=== PATIENT | male | born 1975 | race Caucasian/White ===

== ENCOUNTER 2024-07-22 08:54 | Inpatient (IN) | payer MEDICARE, OTHER, SELFPAY ==
[2024-07-22] VITALS (10 sets, daily range): BP systolic 129–158; BP diastolic 88–100; BMI 33.1; BMI 33.2
[2024-07-22] MEDS: ZOFRAN 4 MG IV ×3 (04:31→23:30)
[2024-07-22 04:56] LABS: % Basophils 0.3 % (0-2); % Eosinophils 0.9 % (0-6); % Immature Granulocytes 1.1 % (0-0.5); % Lymphocytes 1.2 % (20.5-51.1); % Monocytes 7.5 % (1.7-9.3); Absolute Basophils 0.1 10^3/uL (0-0.2); Absolute Eosinophils 0.2 10^3/uL (0-0.7); Absolute Immature Granulocytes 0.2 10^3/uL (0-0.05); Absolute Lymphocytes 0.2 10^3/uL (1.2-3.4); Absolute Monocytes 1.3 10^3/uL (0.1-0.6); Absolute Neutrophils 15.4 10^3/uL (1.4-6.5); Hemoglobin 14.6 g/dL (13.0-18.0); Mean Corp Hgb Conc. 33.2 g/dL (33.0-37.0); Mean Corpuscular Hgb 29.2 pg (27.0-31.0); Mean Platelet Volume 9.2 fL (7.4-10.4); Nucleated Red Blood Cells % 0.1 % (-); Platelet Count 470 10^3/uL (130-400); Red Cell Dist. Width 16.3 % (11.5-14.5); White Blood Cell Count 17.3 10^3/uL (4.8-10.8)
[2024-07-22 05:22] LABS: ALT (SGPT) 49 U/L (0-50); AST (SGOT) 30 U/L (17-59); Albumin 4.7 g/dl (3.5-5.0); Alkaline Phosphatase 90 U/L (38-126); Blood Urea Nitrogen 19 mg/dl (9-20); Calcium 10.9 mg/dl (8.4-10.2); Carbon Dioxide 17 mmol/L (22-30); Chloride 104 mmol/L (98-107); Estimated Creatinine Clearance > 125 ml/min; Glucose 162 mg/dl (70-99); Lipase 101 U/L (23-300); Potassium 4.6 mmol/L (3.5-5.1); Sodium 141 mmol/L (135-145); Total Bilirubin 0.8 mg/dl (0.2-1.3); Total Protein 7.8 g/dl (6.3-8.2); eGFR > 60.00
--- NOTE | 2024-07-22 05:35 | ED.GENMED ---
History of Present Illness
General
Chief Complaint: Abdominal Symptoms
Source: patient and correction
Exam Limitations: none
Time Seen by Provider: 07/22/24 05:25
Nursing documentation reviewed up to this point in time: agreed with
History of Present Illness
History of Present Illness:
This is a 57-year-old obese gentleman who is currently a resident of [facility] for the past week, admitted for rehabilitation purposes after suffering a left knee tibial plateau fracture while hospitalized at a psychiatric care unit in
[facility] for treatment of depression/anxiety symptoms. He states approximately 1 month ago he twisted his left knee and suffered a tibial plateau fracture that has not required surgical repair. He is currently nonweightbearing for
approximately 6 to 8 weeks and was transferred from [facility] on July 11 to [facility] for physical therapy.
He complains of acute onset of nausea, vomiting, diarrhea that began around midnight tonight, persistent passing multiple episodes of watery nonbloody stool as well as multiple episodes of nonbloody vomitus. He admits to crampy abdominal pain but
does not believe he has been running a fever.
No known close contacts with similar symptoms.
He states approximately 1 month ago he suffered C. difficile. He is unsure how he contracted C. difficile, no reported antibiotics. Current diarrhea seems similar to C. difficile infection from a month ago but that was not associated with nausea
and vomiting.
He has history of chronic pain syndrome, chronically maintained on MS IR.
Upon review of PDMP, patient had been maintained on MS Contin as well as MS IR but currently prescribed MS IR 15 mg every 6 hours as needed.
He is also chronically maintained on low-dose prednisone 5 mg, apparently for prior history of vasculitis.
History of DVT, maintained on Eliquis.
Past History
Past History
ED Past Medical History: CAD, CHF, CVA (TIA), GERD, HTN, NIDDM (Prediabetes), Psychiatric (Major depressive disorder, suicidal attempt), Other (Chronic pain syndrome/narcotic dependent; DVT-maintained on Eliquis) and Other (B12 deficiency, UTI)
Social History
Tobacco: Non-smoker
Alcohol: None
Drug: None
Personal:
Living: correction (Currently residing at [facility] for rehabilitation)
Employment: Disabled
Family History
Family History: Other (Noncontributory)
Phy Exam
Physical Exam
Physical Exam:
GENERAL: 49-year-old obese gentleman appears somewhat older than stated age, awake and alert, mildly anxious but easily communicative. Appears mildly chronically ill.
EYE: pupils equal and reactive. anicteric
NECK: Supple, nontender, no meningismus, no significant adenopathy.
ENT: posterior pharynx is clear, oral mucosa is mildly dry. No rhinorrhea.
CARDIAC: Regular rhythm, tachycardic at 115. no murmur.
LUNGS: Clear breath sounds bilaterally, no acute respiratory distress, no wheezes/rales/rhonchi
ABDOMEN: Rotund, soft, nondistended, minimal generalized lower abdominal tenderness with deep palpation only, no r/g, no cvat. Mildly hyperactive bowel sounds.
NEUROLOGICAL: Alert and oriented x3, no focal neuro deficits.
SKIN: Warm and dry, minimally pale in color color, skin intact. No rash.
MUSCULOSKELETAL: No C/C/E. peripheral pulses are full and equal b/l. Mild tenderness about the left knee with very minimal effusion of the left knee.
PSYCH: Moderately blunted affect. Easily communicative.
Course
Orders/Labs/Results
Orders:
Orders
07/22/24 04:21
Ondansetron Injectable [Zofran] 4 mg .ROUTE .STK-MED ONE
07/22/24 04:30
Ondansetron Injectable [Zofran] 4 mg IV NOW STA
07/22/24 04:35
Complete Blood Count/With Diff Urgent
Comprehensive Metabolic Panel Urgent
Lipase Urgent
Influenza A+B Rapid Molecular Urgent
HEAVENLY Source: Nasal Swab
Specimen Description:
STOOL [C difficile Antigen & Toxins] Urgent
HEAVENLY Source: Feces/Stool
Specimen Description:
Date Specimen was Collected: 07/22/24
Time Specimen was Collected: 04:34
Stool Culture Urgent
HEAVENLY Source: Feces/Stool
Specimen Description:
Date Specimen was Collected: 07/22/24
Time Specimen was Collected: 04:34
07/22/24 04:41
EKG [Electrocardiogram (*1)] Urgent
Reason for Study: Tachycardia
EKG- Treatment ONCE
07/22/24 04:51
Add On - Microbiology Urgent
Comments:: stool
Tests Added?: Norovirus
07/22/24 05:53
CT Abd/pelvis W Iv Cont Urgent
Comment:
Reason For Exam: N/V/D, abd pain
Hydrocortisone Sod Succinate [Solu-Cortef] 100 mg IV NOW STA
Morphine Sulfate 4 mg IV NOW STA
07/22/24 06:40
Lactic Acid Urgent
07/22/24 06:41
NSS 1000mL Bolus over 1 hr 0.9% Sodium Chloride 1000 ml [Nss] 1,000 ml IV BOLUS
Abnormal Lab Results
07/22/24
04:35
WBC 17.3 H 10^3/uL
(4.8-10.8)
RDW 16.3 H %
(11.5-14.5)
Plt Count 470 H 10^3/uL
(130-400)
Abs Immat Gran (auto) 0.2 H 10^3/uL
(0-0.05)
Absolute Neuts (auto) 15.4 H 10^3/uL
(1.4-6.5)
Absolute Lymphs (auto) 0.2 L 10^3/uL
(1.2-3.4)
Absolute Monos (auto) 1.3 H 10^3/uL
(0.1-0.6)
Immature Gran % 1.1 H %
(0-0.5)
Neutrophils % 89.0 H %
(42.2-75.2)
Lymphocytes % 1.2 L %
(20.5-51.1)
Carbon Dioxide 17 L mmol/L
(22-30)
Glucose 162 H mg/dl
(70-99)
Calcium 10.9 H mg/dl
(8.4-10.2)
07/22/24 04:35
07/22/24 04:35
Vital Signs
Initial and Last Documented VS:
Initial Vital Signs
Temp Pulse Resp BP Pulse Ox
98.4 F 119 16 152/100 93
07/22/24 04:17 07/22/24 04:17 07/22/24 04:17 07/22/24 04:17 07/22/24 04:17
Last Documented Vital Signs
Temp Pulse Resp BP Pulse Ox
98.4 F 115 15 137/97 95
07/22/24 04:17 07/22/24 05:00 07/22/24 05:00 07/22/24 05:00 07/22/24 05:00
MDM/Problems Addressed
Differential Diagnosis Includes:
Concern for acute gastroenteritis either viral versus foodborne, other consideration is norovirus, concern for recurrent C. difficile colitis.
Concern for electrolyte abnormality, acute dehydration.
Patient chronically maintained on low-dose prednisone, at risk for adrenal insufficiency, at risk for sepsis.
IV fluids infusing, nausea has resolved after an IV dose of Zofran.
Stool cultures obtained and results are pending.
Labs are remarkable for moderately elevated white blood cell count of 17.3, mild acidosis without anion gap.
Patient noted to have mild sinus tachycardia but otherwise normal blood pressure.
Will check CT abdomen pelvis, continue IV fluids. Will trial ice chips.
Will give an IV dose of morphine for pain, and IV dose of Solu-Cortef for potential adrenal insufficiency.
Chronic conditions affecting care: DM, HTN, Cardiomyopathy, Immunosuppressed and Psychiatric illness
*Radiology
Radiology exam reviewed: radiology read reviewed (CAT scan shows acute colitis and proctitis with diarrhea. Acute gastroenteritis without obstruction or perforation. Appendix is normal. Cholelithiasis without cholecystitis. Hepatic steatosis.)
*Pulse Oximetry
Patient hypoxic: no
*EKG
Interpreted by ED Provider?: Yes
Interpretation: abnormal
Comparison EKG: no comparison EKG present
Rate: tachycardiac
Rhythm: sinus
Unity: normal axis
Interval: normal interval
QRS Pattern: poor R-wave progression
Ischemia: non-specific ST changes (Inferior Q waves noted, poor R wave anteriorly. No old EKGs to compare.)
*Critical Care Note
Total Time (30-74mins, 75-104mins- exclusive of procedures): Not Applicable
Update Note
Update Note:
06:50
Patient continues with sinus tachycardia, otherwise remains hemodynamically stable.
CAT scan shows acute gastroenteritis, colitis. No obstruction.
Stool studies pending.
Will check lactic acid.
Will continue IV fluids and will admit to hospitalist service
ED Attending Note
-
Portions of this chart may have been created with voice recognition software.� Occasional wrong word or��sound alike� substitutions may have occurred due to the inherent limitations of voice recognition software.
Discharge Plan
Departure
Patient Disposition: Admit
Date of Disposition: 07/22/24
Time of Disposition: 06:59
Admit to: Telemetry
Presentation/result/management discussed w/ accepting MD/DO: Hospitalist
Condition: Fair
Discharge Problem:
Acute gastroenteritis, History of Clostridium difficile infection, Sinus tachycardia, Acute colitis
Prescriptions:
No Action
carvedilol 25 mg Tablet
25 mg PO BID
acetaminophen 325 mg Tablet
650 mg PO Q6H PRN (Reason: Fever/mild pain )
carvedilol 12.5 mg Tablet
18.75 mg PO BID
Rx Instructions:
Give 1 and 1/2 tablets with 25mg to total 43.75mg BID
cyanocobalamin (vitamin B-12) 100 mcg Tablet
100 mcg PO DAILY
cetirizine 10 mg Tablet
10 mg PO DAILY
clonazepam 0.5 mg Tablet
0.5 mg PO DAILY
amlodipine 5 mg Tablet
5 mg PO DAILY
famotidine 20 mg Tablet
20 mg PO BID
bisacodyl 10 mg Suppository
10 mg SC DAILY PRN (Reason: If MOM is ineffective )
Fleet Enema 19-7 gram/118 mL Enema
118 ml SC ONCE PRN (Reason: constipation)
Rx Instructions:
If suppository ineffective
folic acid 1 mg Tablet
1 mg PO DAILY
furosemide 20 mg Tablet
20 mg PO Q OTHER DAY
azathioprine 100 mg Tablet
200 mg PO DAILY
apixaban 5 mg Tablet
5 mg PO BID
cholecalciferol (vitamin D3)
2,000 units PO DAILY
docusate sodium
PO TID
lidocaine 4 % Adhesive Patch,Medicated
1 patch TOPICAL DAILY
Rx Instructions:
Apply to knees in the morning and off at night
sertraline 100 mg Tablet
200 mg PO DAILY
magnesium hydroxide [Milk of Magnesia] 400 mg/5 mL Suspension
30 ml PO DAILY PRN (Reason: constipation )
Rx Instructions:
If no BM in 3 days
trazodone 100 mg Tablet
100 mg PO HS
prednisone 1 mg Tablet
1 mg PO DAILY
morphine 15 mg Tablet
15 mg PO Q6H PRN (Reason: chronic pain syndrome)
Oyster Calcium Tablet
2 tab PO BID
pregabalin 25 mg Capsule
25 mg PO TID
Referrals:
Keith Burnett DO [Family Provider] -
Interventions
Interventions:
*Risk Screen - Suicide Last Done: 07/22/24 04:17
*General Assessment Last Done: 07/22/24 04:17
*Neglect/Abuse Screening Last Done: 07/22/24 04:17
*ED- Fall Risk Assessment Last Done: 07/22/24 05:02
XK-Zookig-Shzndflfla Assessment Last Done: 07/22/24 05:02
Discharge Date and Time
Print Language: ARABIC
[2024-07-22] MEDS: MORPHINE SULFATE 4 MG IV (06:02)
[2024-07-22] MEDS: SOLU-CORTEF 100 MG IV (06:03)
[2024-07-22] MEDS: NSS 1000 IV ×3 (07:02→21:05)
[2024-07-22] MEDS: ATIVAN 0.5 MG IV (07:15)
[2024-07-22 07:29] LABS: Lactic Acid 1.3 mmol/L (0.7-2.0)
--- NOTE | 2024-07-22 07:58 | HPS.HSE ---
Family Physician
-
Family Physician: Keith Burnett, DO
Chief Complaint
-
Vomiting and diarrhea
History of Present Illness
57-year-old man with a history of:
currently a resident of [facility] for the past week,
hospitalized at a psychiatric care unit in [facility] for treatment of depression/anxiety symptoms.
1 month ago he twisted his left knee and suffered a tibial plateau fracture that has not required surgical repair.
currently nonweightbearing for approximately 6 to 8 weeks and was transferred from [facility] on July 11 to [facility] for physical therapy.
CAD, CVA, CHF
Comes in with acute onset of nausea, vomiting, diarrhea that began around midnight tonight. The episodes are persistent, passing multiple episodes of watery nonbloody stool as well as multiple episodes of nonbloody vomitus. He admits to crampy
abdominal pain but does not believe he has been running a fever. 1 month ago he suffered C. difficile. He is unsure how he contracted C. difficile, no reported antibiotics. Current diarrhea seems similar to C. difficile infection from a month ago
but that episode was not associated with nausea and vomiting. He has history of chronic pain syndrome, chronically maintained on MS IR. He is also chronically maintained on low-dose prednisone 5 mg, for prior history of vasculitis. History of
DVT, maintained on Eliquis.
Medical History
Past Medical History
Past Medical History: Reports Other
Additional Past Medical History:
CAD,
CHF, type not known
CVA (TIA),
GERD,
essential HTN,
NIDDM
Major depressive disorder,
suicidal attempt
Chronic pain syndrome/narcotic dependent;
DVT-maintained on Eliquis
B12 deficiency, UTI
Obesity (BMI of 33.1)
Past Surgical History: Reports None
Social History
Tobacco: Non-smoker
Alcohol: None
Personal:
Living: With Family
Employment: Disabled
Family History
Family History: Not pertinent
Allergies / Home Medications
Allergies reflects when Allergies were last updated in [employer].
Home Medications with original date entered in [employer]
Allergy/Medication List:
Allergies
Allergy/AdvReac Type Severity Reaction Status Date / Time
No Known Allergies Allergy Verified 07/22/24 04:30
Home Medications
acetaminophen 325 mg tablet 650 mg PO Q6H PRN Fever/mild pain 07/22/24
amlodipine 5 mg tablet 5 mg PO DAILY 07/22/24
apixaban 5 mg tablet 5 mg PO BID 07/22/24
azathioprine 100 mg tablet 200 mg PO DAILY 07/22/24
bisacodyl 10 mg rectal suppository 10 mg SD DAILY PRN If MOM is ineffective 07/22/24
calcium carbonate-vit A and D tablet 2 tab PO BID 07/22/24
carvedilol 12.5 mg tablet 18.75 mg PO BID 07/22/24
carvedilol 25 mg tablet 25 mg PO BID 07/22/24
cetirizine 10 mg tablet 10 mg PO DAILY 07/22/24
cholecalciferol (vitamin D3) 2,000 units PO DAILY 07/22/24
clonazepam 0.5 mg tablet 0.5 mg PO DAILY 07/22/24
cyanocobalamin (vitamin B-12) 100 mcg tablet 100 mcg PO DAILY 07/22/24
docusate sodium PO TID 07/22/24
famotidine 20 mg tablet 20 mg PO BID 07/22/24
folic acid 1 mg tablet 1 mg PO DAILY 07/22/24
furosemide 20 mg tablet 20 mg PO Q OTHER DAY 07/22/24
lidocaine 4 % topical patch 1 patch topical DAILY 07/22/24
magnesium hydroxide 400 mg/5 mL oral suspension (Milk of Magnesia) 30 ml PO DAILY PRN constipation 07/22/24
morphine 15 mg immediate release tablet 15 mg PO Q6H PRN chronic pain syndrome 07/22/24
prednisone 1 mg tablet 1 mg PO DAILY 07/22/24
pregabalin 25 mg capsule 25 mg PO TID 07/22/24
sertraline 100 mg tablet 200 mg PO DAILY 07/22/24
sodium phosphates 19 gram-7 gram/118 mL enema (Fleet Enema) 118 ml SD ONCE PRN constipation 07/22/24
trazodone 100 mg tablet 100 mg PO HS 07/22/24
Review of Systems
-
History Source: Patient
A 12 point ROS was completed and negative except as noted: Yes
Abdomen/GI: Reports Abdominal Pain, Nausea, Vomiting and Diarrhea
Physical Exam
Vital Signs
Vital Signs
Temp Pulse Resp BP Pulse Ox
98.4 F 110 20 142/97 92
07/22/24 04:17 07/22/24 07:45 07/22/24 07:45 07/22/24 07:00 07/22/24 07:45
Physical Exam
General: Well Developed, Well Nourished, No Apparent Distress, Comfortable, Conversant and Obese
HEENT: NormoCephalic, Moist mucous membranes, Nose Appears Normal and Ears Appear Normal
Respiratory: Clear
Cardiac: S1/S2, Regular Rhythm and Tachycardia
GI: Soft, Non Distended and Tender (RLQ, no rebound.)
Musculoskeletal: No Clubbing, No Cyanosis and No Edema
Skin: Warm and Dry
Neuro: Awake, Alert, Oriented and AO x 3
Psych: Calm
Laboratory Results
-
07/22/24 04:35
07/22/24 04:35
Laboratory Results
Lactic Acid 1.3 mmol/L (0.7-2.0) 07/22/24 07:01
Total Bilirubin 0.8 mg/dl (0.2-1.3) 07/22/24 04:35
AST 30 U/L (17-59) 07/22/24 04:35
ALT 49 U/L (0-50) 03/09/25 04:35
Alkaline Phosphatase 90 U/L (38-126) 07/22/24 04:35
Lipase 101 U/L (23-300) 07/22/24 04:35
Data Reviewed
-
Lab Data: Labs Reviewed by me
Impression/Plan
-
IMPRESSION:
49 man with nausea/vomiting, living in a jail, h/o recent c-diff.
WBC 17.3
HR 114
[address] preliminary report - colitis
PLAN:
1. Probable gastroenteritis - norovirus and c-diff and other stool studies pending, WBC 17.3
Await results
Supportive care as needed - imodium and zofran
2. Abnormal ECG, with evidence of infarction, age not known, h/o CAD.
Telemetry
Troponins x3
3. H/O DVT on eliquis - continue eliquis
4. H/O chronic steroids - BP not low.
Give regular dose
If vitals do not improve with fluids, give stress dose of steroids
5. NIDDM - Insulin sliding scale
6. Depression - continue current SSRIs
7. Chronic pain - continue usual pain meds
8. Essential HTN - BP not low - continue BP meds
Full code
Eliquis for DVTp
--- NOTE | 2024-07-22 11:00 | PTCARENOTE ---
Patient received from ED; AAOx3; flat; H/o recent suicide attempt (06/20/2024); patient reports feeling depressed; denies any suicidal thoughts or plan; Dr. Duncan notified per protocol; no new orders at this time.
[2024-07-22] MEDS: IMODIUM 2 MG PO ×3 (11:06→23:30)
[2024-07-22] MEDS: PEPCID 20 MG PO ×2 (11:06→21:02)
[2024-07-22] MEDS: LASIX 20 MG PO (11:15)
[2024-07-22 11:31] LABS: Troponin I < 0.012 ng/ml
[2024-07-22] MEDS: TYLENOL 650 MG PO (11:52)
[2024-07-22 13:05] LABS: Glycohemoglobin (HgbA1c) 5.3 % (4.0-5.6)
[2024-07-22 13:08] LABS: Troponin I < 0.012 ng/ml
[2024-07-22] MEDS: LYRICA 25 MG PO ×2 (15:49→21:02)
[2024-07-22 16:51] LABS: Troponin I < 0.012 ng/ml
--- NOTE | 2024-07-22 18:00 | PTCARENOTE ---
Abnormal EKG; Dr. Duncan notified; patient denies SOB and chest pain; VSS; Trop 0.012.
[2024-07-22] MEDS: OSCAL 500 + D 1000 MG PO (21:01)
[2024-07-22] MEDS: COREG 18.75 MG PO (21:01)
[2024-07-22] MEDS: COREG 25 MG PO (21:01)
[2024-07-22] MEDS: ELIQUIS 5 MG PO (21:02)
[2024-07-22] MEDS: DESYREL 100 MG PO (21:03)
[2024-07-22] MEDS: MORPHINE SULFATE 15 MG PO (21:05)
[2024-07-23] VITALS (9 sets, daily range): BP systolic 116–143; BP diastolic 65–89; PULSE 79; O2SAT 96; BMI 33.2
[2024-07-23] MEDS: NSS 1000 IV ×2 (08:26→16:37)
[2024-07-23] MEDS: ELIQUIS 5 MG PO ×2 (08:27→20:09)
[2024-07-23] MEDS: ZOLOFT 200 MG PO (08:27)
[2024-07-23] MEDS: VITAMIN B-12 100 MCG PO (08:27)
[2024-07-23] MEDS: VITAMIN D3 (cholecalciferol) 50 MCG PO (08:27)
[2024-07-23] MEDS: IMURAN 200 MG PO (08:27)
[2024-07-23] MEDS: IMODIUM 2 MG PO ×2 (08:27→16:38)
[2024-07-23] MEDS: DELTASONE 1 MG PO (08:28)
[2024-07-23] MEDS: ZYRTEC 10 MG PO (08:28)
[2024-07-23] MEDS: COREG 18.75 MG PO ×2 (08:28→20:11)
[2024-07-23] MEDS: OSCAL 500 + D 1000 MG PO ×2 (08:28→20:09)
[2024-07-23] MEDS: LYRICA 25 MG PO ×3 (08:29→22:27)
[2024-07-23] MEDS: ZOFRAN 4 MG IV ×2 (08:29→16:38)
[2024-07-23] MEDS: FOLVITE 1 MG PO (08:29)
[2024-07-23] MEDS: COREG 25 MG PO ×2 (08:30→20:09)
[2024-07-23] MEDS: NORVASC 5 MG PO (08:30)
[2024-07-23] MEDS: LIDOCAINE 4% PATCH 1 PATCH TOPICAL (08:30)
[2024-07-23] MEDS: PEPCID 20 MG PO ×2 (08:30→20:11)
[2024-07-23] MEDS: KLONOPIN 0.5 MG PO (08:33)
[2024-07-23 08:41] LABS: Hematocrit 34.4 % (39.0-52.0); Hemoglobin 11.2 g/dL (13.0-18.0); Mean Corp Hgb Conc. 32.6 g/dL (33.0-37.0); Mean Corpuscular Hgb 29.6 pg (27.0-31.0); Mean Corpuscular Volume 90.8 fL (80.0-94.0); Mean Platelet Volume 9.7 fL (7.4-10.4); Platelet Count 290 10^3/uL (130-400); Red Blood Cell Count 3.79 10^6/uL (4.70-6.10); Red Cell Dist. Width 16.6 % (11.5-14.5)
[2024-07-23 08:58] LABS: ALT (SGPT) 48 U/L (0-50); AST (SGOT) 26 U/L (17-59); Albumin 3.5 g/dl (3.5-5.0); Alkaline Phosphatase 66 U/L (38-126); Blood Urea Nitrogen 10 mg/dl (9-20); Carbon Dioxide 23 mmol/L (22-30); Chloride 106 mmol/L (98-107); Estimated Creatinine Clearance > 125 ml/min; Glucose 93 mg/dl (70-99); Potassium 3.6 mmol/L (3.5-5.1); Sodium 138 mmol/L (135-145); Total Bilirubin 0.7 mg/dl (0.2-1.3); Total Protein 5.9 g/dl (6.3-8.2); eGFR > 60.00
--- NOTE | 2024-07-23 11:45 | W.PN.HOSP.TC ---
Today's Communication/Plan
-
see outlined plan below
Assessment / Plan
Assessment / Plan
Assessment:
Acute gastroenteritis with dehydration from Norovirus
- continue IVF
- clears
- supportive care
- isolation protocol
Hx of CAD
- EKG with TWI - no chest pain, no prior records
- Trops x 3 negative
- monitor
Hx of DVT
- continue Eliquis
Essential HTN
- continue Amlodipine/Coreg
NIDDM
- not on meds
- A1c: 5.3%
- SSI
Depression
Prior hx of SI
- was admitted [facility]/psychiatry
- continue Trazodone/Zoloft/Klonopin
- no SI/HI currently
Chronic pain syndrome
- continue PO Morphine, Lyrica
L knee/tibial plateau fracture
- NWB LLE
- PT/OT
hx of CAD
hx of CHF (unknown type)
hx of CVA
- continue Lasix
Hx of chronic steroid use (also azathioprine)
- will clarify w patient on underlying diagnosis - continue these meds for now
DVT ppx: Eliquis
Code: Full
Anticipated Discharge: 24 - 48 hours
Subjective/Interval History
-
Date of Service: July 23, 2024
reports some nausea, does not feel ready for broth/clears
some loose stools
admits to feeling depressed but denies SI/HI; declines psychiatry visit
Objective Data
-
Labs:
Laboratory Results
07/23/24
06:41
WBC 6.0
Hgb 11.2 L D
Hct 34.4 L
Plt Count 290 D
Sodium 138
Potassium 3.6
Chloride 106
Carbon Dioxide 23
BUN 10
Creatinine 0.8
Glucose 93
Calcium 9.0 D
Total Bilirubin 0.7
AST 26
ALT 48
Alkaline Phosphatase 66
Vital Signs:
Vital Signs
Temp Pulse Resp BP Pulse Ox
97.7 F 83 16 116/73 94
07/23/24 11:16 07/23/24 11:16 07/23/24 11:16 07/23/24 11:16 07/23/24 11:16
I&O
07/22/24 07/23/24 07/24/24
06:59 06:59 06:59
Intake Total 900 / 900
Balance 900 / 900
Physical Exam
-
General: No Apparent Distress
HEENT: Normocephalic and Atraumatic
Respiratory: Negative Wheezes
Cardiac: Regular Rhythm and S1/S2
GI: Soft and Nontender
Musculoskeletal: No Edema
Neuro: AO x 3
Psych: Calm
Data Reviewed
-
Total Time Spent with Patient (in minutes): 42
Labs: Labs Reviewed by me
--- NOTE | 2024-07-23 13:03 | CM ---
Reviewed the chart notes and spoke with the patient at the bedside. Patient is currently at [facility] for short term rehab. The patient prior to hospitalization resided alone in a two story home with three steps to enter. The patient has a
rolling walker he uses with ambulation. The patient has has [facility] in the past, no SNF. CM continues to be available to patient/family and is monitoring medical plan for needs at discharge.
Plan: Discharge plans will depend on the patient's progress. PT evaluation pending.
[2024-07-23] MEDS: MORPHINE SULFATE 15 MG PO ×2 (16:53→22:27)
[2024-07-23] MEDS: ATIVAN 1 MG IV (20:21)
[2024-07-23] MEDS: NSS (PRESERVATIVE FREE) 0.5 ML IV (20:22)
[2024-07-23] MEDS: DESYREL 100 MG PO (22:28)
[2024-07-24 03:31] VITALS: BP 128/65
[2024-07-24] MEDS: NSS 1000 IV (05:27)
[2024-07-24 05:47] LABS: Hematocrit 30.4 % (39.0-52.0); Hemoglobin 9.7 g/dL (13.0-18.0); Mean Corp Hgb Conc. 31.9 g/dL (33.0-37.0); Mean Corpuscular Hgb 28.9 pg (27.0-31.0); Mean Corpuscular Volume 90.5 fL (80.0-94.0); Platelet Count 260 10^3/uL (130-400); Red Blood Cell Count 3.36 10^6/uL (4.70-6.10); Red Cell Dist. Width 16.1 % (11.5-14.5); White Blood Cell Count 5.8 10^3/uL (4.8-10.8)
[2024-07-24 06:00] VITALS: BMI 33.3
[2024-07-24 06:18] LABS: Blood Urea Nitrogen 9 mg/dl (9-20); Calcium 8.6 mg/dl (8.4-10.2); Carbon Dioxide 22 mmol/L (22-30); Chloride 106 mmol/L (98-107); Estimated Creatinine Clearance > 125 ml/min; Glucose 83 mg/dl (70-99); Potassium 3.4 mmol/L (3.5-5.1); Sodium 137 mmol/L (135-145); eGFR > 60.00
[2024-07-24 07:20] VITALS: BP 114/66
--- NOTE | 2024-07-24 07:30 | CON.ORTHO ---
Consultation
-
Date/Time Consultation Requested: 07/23/24, time unknown
Date/Time Consultation Performed: 07/24/24 @7:15am
Requesting Provider: Frank
Performing Provider: Sarah Unger PA-C, Edu Henriquez MD
Reason for Consultation: left tibia plateau fracture
Consultation - Orthopedics
History
HPI: 49yo male admitted to the hospital for gastroenteritis. He is currently a resident at [facility] for the past week. He was admitted to [facility] following a an injury to his left knee for PT/OT. On 06/22/24, he twisted his knee and had
pain following the incident. He has a left tibial plateau fracture. He reports that he still has some discomfort in the knee. He has been non weight bearing. He reports that he has some range of motion however he has pain with flexion of the knee.
PAST MEDICAL HISTORY: CAD, CHF, GERD, HTN, NIDDM, major depressive disorder, suicide attempt, chronic pain, DVT, B12 deficiency, obesity
PAST SURGICAL HISTORY: None
SOCIAL HISTORY: denies tobacco, alcohol
FAMILY HISTORY: Noncontributory
REVIEW OF SYSTEMS: 12 point review of systems obtained and negative except those mentioned in the HPI
Allergies / Home Medications
Allergy/AdvReac Type Severity Reaction Status Date / Time
No Known Allergies Allergy Verified 07/22/24 04:30
�Medication �Instructions �Recorded
acetaminophen 325 mg tablet 650 mg PO Q6H PRN Fever/mild pain 07/22/24
amlodipine 5 mg tablet 5 mg PO DAILY Blood Pressure 07/22/24
apixaban 5 mg tablet 5 mg PO BID Blood Clot 07/22/24
Prevention/Tx
azathioprine 100 mg tablet 200 mg PO DAILY 07/22/24
bisacodyl 10 mg rectal suppository 10 mg VT DAILY PRN If MOM is 07/22/24
ineffective
calcium carbonate-vit A and D 2 tab PO BID Supplement 07/22/24
tablet
carvedilol 12.5 mg tablet 18.75 mg PO BID 07/22/24
carvedilol 25 mg tablet 25 mg PO BID Heart 07/22/24
Disease/Condition
cetirizine 10 mg tablet 10 mg PO DAILY Allergies 07/22/24
cholecalciferol (vitamin D3) 2,000 units PO DAILY Supplement 07/22/24
clonazepam 0.5 mg tablet 0.5 mg PO DAILY Neurological 07/22/24
Condition
cyanocobalamin (vitamin B-12) 100 100 mcg PO DAILY Supplement 07/22/24
mcg tablet
docusate sodium PO TID Constipation 07/22/24
famotidine 20 mg tablet 20 mg PO BID Gastrointestinal Issue 07/22/24
folic acid 1 mg tablet 1 mg PO DAILY Supplement 07/22/24
furosemide 20 mg tablet 20 mg PO Q OTHER DAY Fluid 07/22/24
Retention/Swelling
lidocaine 4 % topical patch 1 patch topical DAILY Pain 07/22/24
magnesium hydroxide 400 mg/5 mL 30 ml PO DAILY PRN constipation 07/22/24
oral suspension (Milk of Magnesia)
morphine 15 mg immediate release 15 mg PO Q6H PRN chronic pain 07/22/24
tablet syndrome
prednisone 1 mg tablet 1 mg PO DAILY 07/22/24
pregabalin 25 mg capsule 25 mg PO TID Neurological Condition 07/22/24
sertraline 100 mg tablet 200 mg PO DAILY Mental 07/22/24
Health/Anxiety
sodium phosphates 19 gram-7 118 ml VT ONCE PRN constipation 07/22/24
gram/118 mL enema (Fleet Enema)
trazodone 100 mg tablet 100 mg PO HS Mental Health/Anxiety 07/22/24
Vital Signs / Lab Results
Temp Pulse Resp BP Pulse Ox
97.9 F 63 16 128/65 96
07/24/24 03:31 07/24/24 03:31 07/24/24 03:31 07/24/24 03:31 07/24/24 03:31
07/24/24 05:25
03/11/25 05:25
RADIOGRAPHIC FINDINGS:
Xrays left knee show mild articular surface depression of the lateral aspect of the lateral tibial plateau (Schatzker type IIIa tibial plateau fracture). Severe diffuse bone demineralization. Small to moderate-sized suprapatellar joint effusion.
PHYSICAL EXAM:
General: no acute distress
HEENT: NCAT, normal hearing, sclera anicteric
Heart: No JVD
Lungs: Normal work of breathing on room air
MSK: Directed exam of left knee reveals skin intact. no discolorations. +mild TTP along the lateral joint line. ROM 0-90. calf soft and nontender. NVI distally
Assessment / Plan
ASSESSMENT/PLAN:
Left tibia plateau fracture
--NWB LLE for total of 6-8 weeks
--Ambulate with assistive device as needed
--PT/OT
--Pain medications as needed
--Follow up with outpatient orthopedics in 2 weeks for repeat xrays
--Orthopedics will sign off at this time. Please reach out with any questions or concerns.
[2024-07-24] MEDS: OSCAL 500 + D 1000 MG PO ×2 (07:49→19:39)
[2024-07-24] MEDS: ELIQUIS 5 MG PO ×2 (07:49→19:38)
[2024-07-24] MEDS: LYRICA 25 MG PO ×3 (07:49→22:28)
[2024-07-24] MEDS: ZOLOFT 200 MG PO (07:49)
[2024-07-24] MEDS: ZYRTEC 10 MG PO (07:49)
[2024-07-24] MEDS: DELTASONE 1 MG PO (07:49)
[2024-07-24] MEDS: PEPCID 20 MG PO ×2 (07:50→19:40)
[2024-07-24] MEDS: IMURAN 200 MG PO (07:50)
[2024-07-24] MEDS: FOLVITE 1 MG PO (07:50)
[2024-07-24] MEDS: KLONOPIN 0.5 MG PO (07:50)
[2024-07-24] MEDS: VITAMIN D3 (cholecalciferol) 50 MCG PO (07:50)
[2024-07-24] MEDS: VITAMIN B-12 100 MCG PO (07:51)
[2024-07-24] MEDS: NORVASC 5 MG PO (07:51)
[2024-07-24] MEDS: COREG 18.75 MG PO ×2 (07:52→19:39)
[2024-07-24] MEDS: COREG 25 MG PO ×2 (07:52→19:40)
[2024-07-24] MEDS: LIDOCAINE 4% PATCH 1 PATCH TOPICAL (07:55)
[2024-07-24] MEDS: KCL 40 MEQ PO (08:37)
[2024-07-24] MEDS: NSS 500 IV (08:38)
[2024-07-24] MEDS: ZOFRAN 4 MG IV (08:41)
[2024-07-24] MEDS: IMODIUM 2 MG PO ×2 (08:41→16:09)
[2024-07-24] MEDS: LASIX 20 MG PO (11:31)
[2024-07-24 11:38] VITALS: BP 107/63
--- NOTE | 2024-07-24 11:47 | W.PN.HOSP.TC ---
Today's Communication/Plan
-
continue IVF
monitor for diet
symptom control
Assessment / Plan
Assessment / Plan
Assessment:
Acute gastroenteritis with dehydration from Norovirus
- continue IVF x 1 further bag
- clears; ADAT
- supportive care
- isolation protocol
Hx of CAD
- EKG with TWI - no chest pain, no prior records
- Trops x 3 negative
- monitor
Hx of DVT
- continue Eliquis
Essential HTN
- continue Amlodipine/Coreg
NIDDM
- not on meds
- A1c: 5.3%
- SSI
Depression
Prior hx of SI
- was admitted [facility]/psychiatry
- continue Trazodone/Zoloft/Klonopin
- no SI/HI currently
Chronic pain syndrome
- continue PO Morphine, Lyrica
L knee/tibial plateau fracture
- Xray: show mild articular surface depression of the lateral aspect of the lateral tibial plateau (Schatzker type IIIa tibial plateau fracture). Severe diffuse bone demineralization. Small to moderate-sized suprapatellar joint effusion.
- NWB LLE x 6-8 weeks
- PT/OT
- pain control
- appreciate ortho; f/u ortho office in 2 weeks for repeat xrays
hx of CAD
hx of CHF (unknown type)
hx of CVA
- continue Lasix
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
- continue Azathioprine and steroids
DVT ppx: Eliquis
Code: Full
Anticipated Discharge: 24 - 48 hours
Subjective/Interval History
-
Date of Service: July 24, 2024
reports ongoing nausea/diarrhea
Objective Data
-
Labs:
Laboratory Results
07/24/24
05:25
WBC 5.8
Hgb 9.7 L
Hct 30.4 L
Plt Count 260
Sodium 137
Potassium 3.4 L
Chloride 106
Carbon Dioxide 22
BUN 9
Creatinine 0.7
Glucose 83
Calcium 8.6
Vital Signs:
Vital Signs
Temp Pulse Resp BP Pulse Ox
97.8 F 66 18 107/63 98
07/24/24 11:38 07/24/24 11:38 07/24/24 11:38 07/24/24 11:38 07/24/24 11:38
I&O
07/23/24 07/24/24 07/25/24
06:59 06:59 06:59
Intake Total 900 / 900 480 / 480
Balance 900 / 900 480 / 480
Physical Exam
-
General: No Apparent Distress
HEENT: Normocephalic and Atraumatic
Respiratory: Negative Wheezes
Cardiac: Regular Rhythm and S1/S2
GI: Soft and Tender (mildly with cramping)
Musculoskeletal: No Edema
Neuro: AO x 3
Hematologic / Lymphatic: No Lymphadenopathy
Psych: Calm
Data Reviewed
-
Total Time Spent with Patient (in minutes): 41
Labs: Labs Reviewed by me
--- NOTE | 2024-07-24 12:20 | CM ---
Reviewed the chart notes. PT recommending SNF. Referral sent to [facility] where the patient was transferred from. [facility] will accept back when medically stable. CM continues to be available to patient/family and is monitoring medical plan
for needs at discharge.
Plan: Discharge back to [facility] when medically stable. No precert required.
[2024-07-24 15:53] VITALS: BP 112/74
[2024-07-24] MEDS: MORPHINE SULFATE 15 MG PO ×2 (16:09→22:38)
[2024-07-24] MEDS: ATIVAN 1 MG IV (16:10)
[2024-07-24] MEDS: TYLENOL 650 MG PO (16:10)
--- NOTE | 2024-07-24 16:48 | PTCARENOTE ---
Pt received from prior RN. Assessment unchanged. Pt frequently incontinent of liquid brown diarrhea. Pt's skin with some MASD around rectum. Encouraged pt to order dinner, he will attempt a CLD.
--- NOTE | 2024-07-24 17:47 | PTCARENOTE ---
As pt was eating dinner, he started to have multiple pauses >3 seconds, causing tele to alarm a HR in the 20's. Upon arriving to pt's bedside, pt was asymptomatic but states he ate his water ice too fast and had a brain freeze. made aware.
[2024-07-24 19:32] VITALS: BP 136/78
[2024-07-24] MEDS: DESYREL 100 MG PO (22:27)
[2024-07-24 23:45] VITALS: BP 127/68
[2024-07-25 05:07] VITALS: BMI 33.1
[2024-07-25 06:06] LABS: Hematocrit 32.3 % (39.0-52.0); Hemoglobin 10.5 g/dL (13.0-18.0); Mean Corp Hgb Conc. 32.5 g/dL (33.0-37.0); Mean Corpuscular Hgb 29.4 pg (27.0-31.0); Mean Corpuscular Volume 90.5 fL (80.0-94.0); Mean Platelet Volume 9.7 fL (7.4-10.4); Platelet Count 269 10^3/uL (130-400); Red Blood Cell Count 3.57 10^6/uL (4.70-6.10); Red Cell Dist. Width 15.9 % (11.5-14.5); White Blood Cell Count 6.2 10^3/uL (4.8-10.8)
[2024-07-25 06:28] LABS: Blood Urea Nitrogen 5 mg/dl (9-20); Carbon Dioxide 31 mmol/L (22-30); Chloride 104 mmol/L (98-107); Estimated Creatinine Clearance > 125 ml/min; Glucose 82 mg/dl (70-99); Potassium 3.7 mmol/L (3.5-5.1); Sodium 139 mmol/L (135-145); eGFR > 60.00
[2024-07-25 08:20] VITALS: BP 127/62
[2024-07-25] MEDS: LIDOCAINE 4% PATCH 1 PATCH TOPICAL (08:53)
[2024-07-25] MEDS: DELTASONE 1 MG PO (08:54)
[2024-07-25] MEDS: IMURAN 200 MG PO (08:54)
[2024-07-25] MEDS: VITAMIN B-12 100 MCG PO (08:55)
[2024-07-25] MEDS: ELIQUIS 5 MG PO ×2 (08:55→21:23)
[2024-07-25] MEDS: VITAMIN D3 (cholecalciferol) 50 MCG PO (08:55)
[2024-07-25] MEDS: OSCAL 500 + D 1000 MG PO ×2 (08:56→21:22)
[2024-07-25] MEDS: LYRICA 25 MG PO ×3 (08:56→21:20)
[2024-07-25] MEDS: KLONOPIN 0.5 MG PO (08:56)
[2024-07-25] MEDS: NORVASC 5 MG PO (08:57)
[2024-07-25] MEDS: COREG 18.75 MG PO ×2 (08:57→21:21)
[2024-07-25] MEDS: ZOLOFT 200 MG PO (08:57)
[2024-07-25] MEDS: FOLVITE 1 MG PO (08:59)
[2024-07-25] MEDS: PEPCID 20 MG PO ×2 (08:59→21:22)
[2024-07-25] MEDS: COREG 25 MG PO ×2 (09:00→21:23)
[2024-07-25] MEDS: ZYRTEC 10 MG PO (09:00)
[2024-07-25 11:45] VITALS: BP 116/62
--- NOTE | 2024-07-25 12:22 | W.PN.HOSP.TC ---
Today's Communication/Plan
-
advance diet to LRD
cap IVF
ongoing PT/OT
Assessment / Plan
Assessment / Plan
Assessment:
Acute gastroenteritis with dehydration from Norovirus
- cap IVF
- advance to low residue diet
- supportive care - but no Imodium, allow natural clearance of virus
- isolation protocol
Hx of CAD
- EKG with TWI - no chest pain, no prior records
- Trops x 3 negative
- monitor
Hx of DVT
- continue Eliquis
Essential HTN
- continue Amlodipine/Coreg
NIDDM
- not on meds
- A1c: 5.3%
- SSI
Depression
Prior hx of SI
- was admitted [facility]/psychiatry
- continue Trazodone/Zoloft/Klonopin
- no SI/HI currently
Chronic pain syndrome
- continue PO Morphine, Lyrica
L knee/tibial plateau fracture
- Xray: show mild articular surface depression of the lateral aspect of the lateral tibial plateau (Schatzker type IIIa tibial plateau fracture). Severe diffuse bone demineralization. Small to moderate-sized suprapatellar joint effusion.
- NWB LLE x 6-8 weeks
- PT/OT
- pain control
- appreciate ortho; f/u ortho office in 2 weeks for repeat xrays
hx of CAD
hx of CHF (unknown type)
hx of CVA
- continue Lasix
Hx of primary angitis LEAN SIX SIGMA BLACK BELT
- continue Azathioprine and steroids
DVT ppx: Eliquis
Code: Full
Anticipated Discharge: 24 - 48 hours
Subjective/Interval History
-
Date of Service: July 25, 2024
diarrhea improving
Objective Data
-
Labs:
Laboratory Results
07/25/24
05:16
WBC 6.2
Hgb 10.5 L
Hct 32.3 L
Plt Count 269
Sodium 139
Potassium 3.7
Chloride 104
Carbon Dioxide 31 H
BUN 5 L
Creatinine 0.8
Glucose 82
Calcium 9.0
Vital Signs:
Vital Signs
Temp Pulse Resp BP Pulse Ox
97.9 F 68 16 116/62 96
07/25/24 11:45 07/25/24 11:45 07/25/24 11:45 07/25/24 11:45 07/25/24 11:45
I&O
07/24/24 07/25/24 07/26/24
06:59 06:59 06:59
Intake Total 480 / 480 120 / 120
Output Total 1775 / 1775
Balance 480 / 480 -1655 / -1655
Physical Exam
-
General: No Apparent Distress
HEENT: Normocephalic and Atraumatic
Respiratory: Negative Wheezes
Cardiac: Regular Rhythm and S1/S2
GI: Soft
Genito-urinary: No Costovertebral Tender
Neuro: AO x 3
Psych: Calm
Data Reviewed
-
Total Time Spent with Patient (in minutes): 42
Labs: Labs Reviewed by me
--- NOTE | 2024-07-25 12:42 | CM ---
Referral updated in [facility] for [facility]
tt from hospitalist potential d/c tomorrow if tolerates diet today
no auth required
PLAN: [facility]
[2024-07-25] MEDS: MORPHINE SULFATE 15 MG PO ×2 (13:03→21:21)
[2024-07-25] MEDS: ATIVAN 1 MG IV ×2 (13:04→21:24)
[2024-07-25 14:38] VITALS: BP 136/69
[2024-07-25] MEDS: ZOFRAN 4 MG IV ×2 (14:41→22:42)
[2024-07-25] MEDS: DESYREL 100 MG PO (21:23)
[2024-07-25 22:49] VITALS: BP 139/74
[2024-07-26 05:48] VITALS: BMI 33.0
[2024-07-26 07:34] VITALS: BP 112/66
[2024-07-26] MEDS: IMURAN 200 MG PO (09:05)
[2024-07-26] MEDS: LIDOCAINE 4% PATCH 1 PATCH TOPICAL (09:05)
[2024-07-26] MEDS: VITAMIN B-12 100 MCG PO (09:05)
[2024-07-26] MEDS: LYRICA 25 MG PO ×2 (09:06→15:16)
[2024-07-26] MEDS: COREG 18.75 MG PO (09:06)
[2024-07-26] MEDS: DELTASONE 1 MG PO (09:06)
[2024-07-26] MEDS: OSCAL 500 + D 1000 MG PO (09:06)
[2024-07-26] MEDS: ZOLOFT 200 MG PO (09:06)
[2024-07-26] MEDS: COREG 25 MG PO (09:07)
[2024-07-26] MEDS: ZYRTEC 10 MG PO (09:07)
[2024-07-26] MEDS: ELIQUIS 5 MG PO (09:07)
[2024-07-26] MEDS: KLONOPIN 0.5 MG PO (09:07)
[2024-07-26] MEDS: NORVASC 5 MG PO (09:08)
[2024-07-26] MEDS: PEPCID 20 MG PO (09:08)
[2024-07-26] MEDS: FOLVITE 1 MG PO (09:08)
[2024-07-26] MEDS: VITAMIN D3 (cholecalciferol) 50 MCG PO (09:08)
--- NOTE | 2024-07-26 11:27 | CM ---
Addendum entered by Viki De León RN 07/26/24 11:34:
IMM reviewed.
Original Note:
Reviewed the chart notes and spoke with the patient at the bedside. CM continues to be available to patient/family and is monitoring medical plan for needs at discharge.
Plan: Discharge back to [facility] when medically stable.
Call report to: [phone], [facility] nurses station
Fax report to: [phone]
Medical necessity and transport forms on chart.
--- NOTE | 2024-07-26 11:46 | W.PN.HOSP.TC ---
Today's Communication/Plan
-
dc back to SNF today
Assessment / Plan
Assessment / Plan
Assessment:
Acute gastroenteritis with dehydration from Norovirus
- cap IVF
- advance to low residue diet
- supportive care - but no Imodium, allow natural clearance of virus
- isolation protocol
Hx of CAD
- EKG with TWI - no chest pain, no prior records
- Trops x 3 negative
- monitor
Hx of DVT
- continue Eliquis
Essential HTN
- continue Amlodipine/Coreg
NIDDM
- not on meds
- A1c: 5.3%
- SSI
Depression
Prior hx of SI
- was admitted [facility]/psychiatry
- continue Trazodone/Zoloft/Klonopin
- no SI/HI currently
Chronic pain syndrome
- continue PO Morphine, Lyrica
L knee/tibial plateau fracture
- Xray: show mild articular surface depression of the lateral aspect of the lateral tibial plateau (Schatzker type IIIa tibial plateau fracture). Severe diffuse bone demineralization. Small to moderate-sized suprapatellar joint effusion.
- NWB LLE x 6-8 weeks
- PT/OT
- pain control
- appreciate ortho; f/u ortho office in 2 weeks for repeat xrays
hx of CAD
hx of CHF (unknown type)
hx of CVA
- continue Lasix
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
- continue Azathioprine and steroids
DVT ppx: Eliquis
Code: Full
More than 30 minutes spent in discharge including
Final examination of the patient
Summarizing hospital stay
Instructions for continuing care to all relevant caregivers
Preparation of discharge records, prescriptions, and referral forms
Total time spent (in minutes): 41
Anticipated Discharge: Today
Subjective/Interval History
-
Date of Service: July 26, 2024
denies any complaints at present
reports stools are now more formed, no further diarrhea
eating diet including last night dinner
Objective Data
-
Vital Signs:
Vital Signs
Temp Pulse Resp BP Pulse Ox
98.6 F 73 18 112/66 96
07/26/24 07:34 07/26/24 09:08 07/26/24 07:34 07/26/24 09:08 07/26/24 07:34
I&O
07/25/24 07/26/24 07/27/24
06:59 06:59 06:59
Intake Total 120 / 120 240 / 240
Output Total 1775 / 1775
Balance -1655 / -1655 240 / 240
Physical Exam
-
General: No Apparent Distress
HEENT: Normocephalic and Atraumatic
Respiratory: Negative Wheezes
Cardiac: Regular Rhythm and S1/S2
GI: Soft and Nontender
Musculoskeletal: No Edema
Neuro: AO x 3
Hematologic / Lymphatic: No Lymphadenopathy
Psych: Calm
Data Reviewed
-
Total Time Spent with Patient (in minutes): 42
Labs: Labs Reviewed by me
--- NOTE | 2024-07-26 11:58 | W.DS.TRANS ---
DC Summary - [facility]
-
Discharge Instructions:
Discharge Diagnosis/Procedures Norovirus infection, chronic L tibial plateau
fracture
Diet Low Residue
Activity As tolerated
Bathing Restrictions None
Instructions:
Stand-Alone Forms:
Changes to Home Medications: No
Discharge Medications:
DC Medications w/original date entered in [employer]
acetaminophen 325 mg tablet 650 mg PO Q6H PRN Fever/mild pain 07/22/24
amlodipine 5 mg tablet 5 mg PO DAILY Blood Pressure 07/22/24
apixaban 5 mg tablet 5 mg PO BID Blood Clot Prevention/Tx 07/22/24
azathioprine 100 mg tablet 200 mg PO DAILY 07/22/24
bisacodyl 10 mg rectal suppository 10 mg LA DAILY PRN If MOM is ineffective 07/22/24
calcium carbonate-vit A and D tablet 2 tab PO BID Supplement 07/22/24
carvedilol 12.5 mg tablet 18.75 mg PO BID 07/22/24
carvedilol 25 mg tablet 25 mg PO BID Heart Disease/Condition 07/22/24
cetirizine 10 mg tablet 10 mg PO DAILY Allergies 07/22/24
cholecalciferol (vitamin D3) 2,000 units PO DAILY Supplement 07/22/24
cyanocobalamin (vitamin B-12) 100 mcg tablet 100 mcg PO DAILY Supplement 07/22/24
docusate sodium PO TID Constipation 07/22/24
famotidine 20 mg tablet 20 mg PO BID Gastrointestinal Issue 07/22/24
folic acid 1 mg tablet 1 mg PO DAILY Supplement 07/22/24
furosemide 20 mg tablet 20 mg PO Q OTHER DAY Fluid Retention/Swelling 07/22/24
lidocaine 4 % topical patch 1 patch topical DAILY Pain 07/22/24
magnesium hydroxide 400 mg/5 mL oral suspension (Milk of Magnesia) 30 ml PO DAILY PRN constipation 07/22/24
prednisone 1 mg tablet 1 mg PO DAILY 07/22/24
pregabalin 25 mg capsule 25 mg PO TID Neurological Condition 07/22/24
sertraline 100 mg tablet 200 mg PO DAILY Mental Health/Anxiety 07/22/24
sodium phosphates 19 gram-7 gram/118 mL enema (Fleet Enema) 118 ml LA ONCE PRN constipation 07/22/24
trazodone 100 mg tablet 100 mg PO HS Mental Health/Anxiety 07/22/24
clonazepam 0.5 mg tablet 0.5 mg PO DAILY Neurological Condition #3 tabs 07/26/24
morphine 15 mg immediate release tablet 15 mg PO Q6H PRN chronic pain syndrome #10 tabs 07/26/24
Home Medication Changes
Pending Results: No
Total time spent discharging patient (in min): 41
[2024-07-26] MEDS: LASIX 20 MG PO (13:19)
[2024-07-26] MEDS: MORPHINE SULFATE 15 MG PO (15:26)
[2024-07-26 15:28] VITALS: BP 121/71
[2024-07-26] MEDS: ATIVAN 0.5 MG PO (15:33)
--- NOTE | 2024-07-26 17:05 | PTCARENOTE ---
Patient discharged to [facility], transported by EMS transport. Report given to Jack at facility by this RN. Patient changed and vitals taken prior to transport. PRN morphine and one time dose of PO ativan administered prior to transport. No
belongings at bedside per patient. IV removed by this RN.
== END 2024-07-26 17:12 | DRG 392 ==
LOC: 2 NORTH 08:54
PROVIDERS: ADMITTING PHYSICIAN Internal Medicine; ATTENDING PHYSICIAN Internal Medicine; CONSULT PHYSICIAN Orthopaedic Surgery; EMERGENCY PHYSICIAN Emergency Medicine; FAMILY PHYSICIAN Internal Medicine
DX: A08.11 Acute gastroenteropathy due to Norwalk agent (principal); F11.20 Opioid dependence, uncomplicated; E86.0 Dehydration; I25.10 Atherosclerotic heart disease of native coronary artery without angina pectoris; Z86.718 Personal history of other venous thrombosis and embolism; I50.9 Heart failure, unspecified; I11.0 Hypertensive heart disease with heart failure; E11.9 Type 2 diabetes mellitus without complications; G89.4 Chronic pain syndrome; F32.9 Major depressive disorder, single episode, unspecified; Z86.73 Personal history of transient ischemic attack (TIA), and cerebral infarction without residual deficits; F41.9 Anxiety disorder, unspecified; S82.142D Displaced bicondylar fracture of left tibia, subsequent encounter for closed fracture with routine healing; Z79.52 Long term (current) use of systemic steroids; K21.9 Gastro-esophageal reflux disease without esophagitis; Z79.01 Long term (current) use of anticoagulants; E53.8 Deficiency of other specified B group vitamins; Z68.33 Body mass index [BMI] 33.0-33.9, adult; E66.9 Obesity, unspecified; Z79.899 Other long term (current) drug therapy; M81.0 Age-related osteoporosis without current pathological fracture
CPT/HCPCS: 73564; 74177; 80048; 80053; 83036; 83605; 83690; 84484; 85025; 85027; 87045; 87046; 87070; 87324; 87427; 87449; 87502; 87798; 93005; 96374; 96375; 97163; 97166; 99285; J7500; Q9967

== ENCOUNTER 2024-07-28 22:13 | Emergency (ER) | payer MEDICARE, OTHER, SELFPAY ==
[2024-07-28 22:20] VITALS: BP 134/73
--- NOTE | 2024-07-28 23:10 | ED.GENMED ---
History of Present Illness
General
Chief Complaint: DVT/Possible Blood Clot
Source: patient
Exam Limitations: none
Time Seen by Provider: 07/28/24 22:34
Nursing documentation reviewed up to this point in time: agreed with
History of Present Illness
History of Present Illness:
49-year-old male past medical history of CHF previous blood clot currently on Eliquis, previous stroke depression anxiety presenting to the emergency department today with concerns of left calf pain had a greater tuberosity fracture of the left leg
5 weeks ago and a knee immobilizer.
Past History
Past History
ED Past Medical History: CAD, CHF, CVA (TIA), GERD, HTN, NIDDM (Prediabetes), Psychiatric (Major depressive disorder, suicidal attempt), Other (Chronic pain syndrome/narcotic dependent; DVT-maintained on Eliquis) and Other (B12 deficiency, UTI)
Social History
Tobacco: Non-smoker
Alcohol: None
Drug: None
Personal:
Living: detention (Currently residing at [facility] for rehabilitation)
Employment: Disabled
Family History
Family History: Other (Noncontributory)
Review of Systems
Review of Systems
Allergies reviewed?: Yes
All Other Systems: ROS reviewed and negative except as documented in HPI and ROS
Phy Exam
Physical Exam
Physical Exam:
GENERAL: Alert , in no apparent distress
EYE: pupils equal and reactive
NECK: Supple, no significant adenopathy.
ENT: o/p clr, mmm.
CARDIAC: Regular rate and rhythm .
LUNGS: Clear breath sounds bilaterally, no acute respiratory distress, no wheezes/rales/rhonchi
ABDOMEN: Soft, without focal tenderness, no r/g, no cvat
NEUROLOGICAL: Alert and oriented, no focal neuro deficits
SKIN: Warm and dry, skin intact.
MUSCULOSKELETAL: Swelling discomfort to the left calf. Well perfused.
PSYCH: Normal and appropriate interaction.
Course
Orders/Labs/Results
Orders:
Orders
07/28/24 22:34
Venous Doppler Lwr Ext Left [US Periph Venous LOWER Ext LT] Urgent
Comment:
Reason For Exam: left calf swelling
Vital Signs
Initial and Last Documented VS:
Initial Vital Signs
Temp Pulse Resp Pulse Ox
98.4 F 66 19 96
07/28/24 22:16 07/28/24 22:16 07/28/24 22:16 07/28/24 22:16
Last Documented Vital Signs
Temp Pulse Resp BP Pulse Ox
98.4 F 66 19 134/73 96
07/28/24 22:16 07/28/24 22:16 07/28/24 22:16 07/28/24 22:20 07/28/24 22:16
MDM/Problems Addressed
MDM/Problems Addressed:
49-year-old male presenting to the emergency department with concerns of left calf pain. Has been immobilized due to a greater tuberosity fracture 5 weeks ago. Ultrasound without signs of blood clot leg with no redness or warmth no signs of
infection no signs of emergent pathology stable for discharge. Return precautions given.
*Critical Care Note
Total Time (30-74mins, 75-104mins- exclusive of procedures): Not Applicable
ED Attending Note
-
Portions of this chart may have been created with voice recognition software.� Occasional wrong word or��sound alike� substitutions may have occurred due to the inherent limitations of voice recognition software.
Discharge Plan
Departure
Patient Disposition: Home (Routine Discharge)
Date of Disposition: 07/28/24
Time of Disposition: 23:28
Patient with high blood pressure during this ER visit?: No
Condition: Good
Covid-19: Not Applicable
Discharge Problem:
Calf pain
Prescriptions:
No Action
carvedilol 25 mg Tablet
25 mg PO BID
acetaminophen 325 mg Tablet
650 mg PO Q6H PRN (Reason: Fever/mild pain )
carvedilol 12.5 mg Tablet
18.75 mg PO BID
Rx Instructions:
Give 1 and 1/2 tablets with 25mg to total 43.75mg BID
cyanocobalamin (vitamin B-12) 100 mcg Tablet
100 mcg PO DAILY
cetirizine 10 mg Tablet
10 mg PO DAILY
amlodipine 5 mg Tablet
5 mg PO DAILY
famotidine 20 mg Tablet
20 mg PO BID
bisacodyl 10 mg Suppository
10 mg DE DAILY PRN (Reason: If MOM is ineffective )
Fleet Enema 19-7 gram/118 mL Enema
118 ml DE ONCE PRN (Reason: constipation)
Rx Instructions:
If suppository ineffective
folic acid 1 mg Tablet
1 mg PO DAILY
furosemide 20 mg Tablet
20 mg PO Q OTHER DAY
azathioprine 100 mg Tablet
200 mg PO DAILY
apixaban 5 mg Tablet
5 mg PO BID
cholecalciferol (vitamin D3)
2,000 units PO DAILY
docusate sodium
PO TID
lidocaine 4 % Adhesive Patch,Medicated
1 patch TOPICAL DAILY
Rx Instructions:
Apply to knees in the morning and off at night
sertraline 100 mg Tablet
200 mg PO DAILY
magnesium hydroxide [Milk of Magnesia] 400 mg/5 mL Suspension
30 ml PO DAILY PRN (Reason: constipation )
Rx Instructions:
If no BM in 3 days
trazodone 100 mg Tablet
100 mg PO HS
prednisone 1 mg Tablet
1 mg PO DAILY
calcium carbonate-vit A and D Tablet
2 tab PO BID
pregabalin 25 mg Capsule
25 mg PO TID
clonazepam 0.5 mg Tablet
0.5 mg PO DAILY Qty: 3 0RF
morphine 15 mg Tablet
15 mg PO Q6H PRN (Reason: chronic pain syndrome) Qty: 10 0RF
Referrals:
Keith Burnett, DO [Family Provider] -
Activity Restrictions/Additional Instructions:
Ultrasound today did not show DVT.
Interventions
Interventions:
*Risk Screen - Suicide Last Done: 07/28/24 22:16
*General Assessment Last Done: 07/28/24 22:16
*Neglect/Abuse Screening Last Done: 07/28/24 22:16
*ED- Fall Risk Assessment Last Done: 07/28/24 23:12
*ED COVID-19 Vaccine History Last Done: 07/28/24 22:16
Discharge Date and Time
Print Language: GEORGIAN
[2024-07-29] VITALS: BP 141/63
== END 2024-07-29 02:37 | disposition home or self-care (01) ==
LOC: EMR 22:13
PROVIDERS: EMERGENCY PHYSICIAN Emergency Medicine; FAMILY PHYSICIAN Internal Medicine
DX: M79.662 Pain in left lower leg (principal); E11.9 Type 2 diabetes mellitus without complications; I11.0 Hypertensive heart disease with heart failure; I50.9 Heart failure, unspecified; G89.4 Chronic pain syndrome; I25.10 Atherosclerotic heart disease of native coronary artery without angina pectoris; Z86.718 Personal history of other venous thrombosis and embolism; Z86.73 Personal history of transient ischemic attack (TIA), and cerebral infarction without residual deficits; Z79.01 Long term (current) use of anticoagulants
CPT/HCPCS: 99284; 93971

== ENCOUNTER 2024-08-03 16:34 | Emergency (ER) | payer MEDICARE, OTHER, SELFPAY ==
[2024-08-03] VITALS (8 sets, daily range): BP systolic 119–150; BP diastolic 70–93
[2024-08-03 17:15] LABS: ALT (SGPT) 54 U/L (0-50); AST (SGOT) 34 U/L (17-59); Albumin 4.2 g/dl (3.5-5.0); Alkaline Phosphatase 68 U/L (38-126); Blood Urea Nitrogen 8 mg/dl (9-20); Calcium 9.5 mg/dl (8.4-10.2); Carbon Dioxide 22 mmol/L (22-30); Chloride 105 mmol/L (98-107); Glucose 109 mg/dl (70-99); Potassium 4.4 mmol/L (3.5-5.1); Sodium 137 mmol/L (135-145); Total Bilirubin 0.6 mg/dl (0.2-1.3); Total Protein 6.7 g/dl (6.3-8.2); eGFR > 60.00
[2024-08-03 17:17] LABS: % Basophils 0.6 % (0-2); % Eosinophils 1.9 % (0-6); % Immature Granulocytes 0.4 % (0-0.5); % Lymphocytes 12.4 % (20.5-51.1); % Monocytes 10.7 % (1.7-9.3); Absolute Basophils 0.1 10^3/uL (0-0.2); Absolute Eosinophils 0.2 10^3/uL (0-0.7); Absolute Lymphocytes 1.3 10^3/uL (1.2-3.4); Absolute Monocytes 1.1 10^3/uL (0.1-0.6); Absolute Neutrophils 7.7 10^3/uL (1.4-6.5); Hematocrit 35.9 % (39.0-52.0); Hemoglobin 12.3 g/dL (13.0-18.0); Mean Corp Hgb Conc. 34.3 g/dL (33.0-37.0); Mean Corpuscular Hgb 29.6 pg (27.0-31.0); Mean Corpuscular Volume 86.3 fL (80.0-94.0); Mean Platelet Volume 9.4 fL (7.4-10.4); Nucleated Red Blood Cells % 0 % (-); Platelet Count 284 10^3/uL (130-400); Red Blood Cell Count 4.16 10^6/uL (4.70-6.10); Red Cell Dist. Width 16.3 % (11.5-14.5); White Blood Cell Count 10.4 10^3/uL (4.8-10.8)
[2024-08-03 17:26] LABS: Troponin I < 0.012 ng/ml
--- NOTE | 2024-08-03 18:04 | ED.GENMED ---
History of Present Illness
General
Chief Complaint: Chest Pain
Source: patient
Exam Limitations: none
Time Seen by Provider: 08/03/24 16:34
History of Present Illness
History of Present Illness:
49-year-old male who presents with chest pain. Patient reports left-sided chest pain. Patient states that symptoms are about 3 hours prior to arrival. He is currently at local rehab after tibial plateau fracture. Patient states he has been there
for several weeks. Patient has a history of congestive heart failure and a low EF. States much of his workup has been at [facility]. Patient denies shortness of breath. The patient is noted to be on Eliquis. No fevers. Given
aspirin prior to arrival
Past History
Past History
ED Past Medical History: CAD, CHF, CVA (TIA), GERD, HTN, NIDDM (Prediabetes), Psychiatric (Major depressive disorder, suicidal attempt), Other (Chronic pain syndrome/narcotic dependent; DVT-maintained on Eliquis) and Other (B12 deficiency, UTI)
Social History
Tobacco: Non-smoker
Alcohol: None
Drug: None
Personal:
Living: long-term (Currently residing at [facility] for rehabilitation)
Employment: Disabled
Family History
Family History: Other (Noncontributory)
Phy Exam
Physical Exam
Physical Exam:
CONSTITUTIONAL Patient alert and oriented to person, place and time. Well-appearing. Vital signs reviewed.
HEAD atraumatic, normocephalic.
EYES eyelids normal to inspection, Extraocular muscles intact, Conjunctiva normal, Sclera normal.
NECK normal range of motion, Trachea midline, no jugular venous distention.
RESPIRATORY CHEST No respiratory distress noted, Chest expansion equal, Bilateral breath sounds clear.
CARDIOVASCULAR regular rate and rhythm, Heart sounds normal.
ABDOMEN abdomen nontender, Bowel sounds normal. No distention.
BACK normal inspection, no obvious deformities
UPPER EXTREMITY range of motion normal, Motor strength normal, no cyanosis, no edema.
LOWER EXTREMITY no cyanosis, no edema. Left knee immobilizer noted. No significant edema bilaterally. Normal distal perfusion bilaterally
NEURO Speech normal, No focal motor deficits, Marina coma scale 15, Memory normal, Cranial Nerves intact to screening exam.
SKIN skin warm, dry, and normal in color.
Scores
Heart Score for Chest Pain Patients
STEMI patient?: No
History: Slightly or Non-Suspicious
ECG: Normal
Age: >45 - <65 years
Risk Factors: 1 or 2 Risk Factors
Troponin: </= Normal Limit
Heart Score for Chest Pain Patients: 2
Heart Score Risk: 2.5% MACE over next 6 weeks
Course
Orders/Labs/Results
Orders:
Orders
08/03/24 16:38
Electrocardiogram (*1) Urgent
Reason for Study: Chest Pain
EKG- Treatment ONCE
CR Chest - 2 Views Urgent
Comment:
Reason For Exam: chest pain
08/03/24 16:39
Complete Blood Count/With Diff Urgent
Comprehensive Metabolic Panel Urgent
Troponin I Urgent
08/03/24 18:53
EKG- Treatment ONCE
08/03/24 20:03
ECG [Electrocardiogram (*1)] Urgent
Reason for Study: Chest Pain
08/03/24 20:06
Troponin I Urgent
08/03/24 21:10
Ketorolac [Toradol] 15 mg IV NOW STA
Lorazepam [Ativan] 1 mg PO NOW STA
Abnormal Lab Results
08/03/24
16:39
RBC 4.16 L 10^6/uL
(4.70-6.10)
Hgb 12.3 L g/dL
(13.0-18.0)
Hct 35.9 L %
(39.0-52.0)
RDW 16.3 H %
(11.5-14.5)
Absolute Neuts (auto) 7.7 H 10^3/uL
(1.4-6.5)
Absolute Monos (auto) 1.1 H 10^3/uL
(0.1-0.6)
Lymphocytes % 12.4 L %
(20.5-51.1)
Monocytes % 10.7 H %
(1.7-9.3)
BUN 8 L mg/dl
(9-20)
Glucose 109 H mg/dl
(70-99)
ALT 54 H U/L
(0-50)
08/03/24 16:39
08/03/24 16:39
Vital Signs
Initial and Last Documented VS:
Initial Vital Signs
Temp Pulse Resp BP
98.1 F 74 20 128/93
08/03/24 16:36 08/03/24 16:36 08/03/24 16:36 08/03/24 16:36
Last Documented Vital Signs
Temp Pulse Resp BP Pulse Ox
98.1 F 67 14 150/74 96
08/03/24 16:36 08/03/24 22:00 08/03/24 22:00 08/03/24 22:00 08/03/24 18:00
MDM/Problems Addressed
Differential Diagnosis Includes:
PE, dissection, pneumothorax, pneumonia, ACS
MDM/Problems Addressed:
Chest pain
*Radiology
Radiology exam reviewed: radiology read reviewed
*Pulse Oximetry
Patient hypoxic: no
*EKG
Interpreted by ED Provider?: Yes
Interpretation: normal
Rate: normal
[place]: normal axis
Ischemia: no ischemia
*Warehouse Lead Interpretation
Rate: normal
Rhythm: sinus
*Critical Care Note
Total Time (30-74mins, 75-104mins- exclusive of procedures): Not Applicable
Data Reviewed
Review of Other/Old Records Reveals: Testing (Recent DVT study reviewed and negative for DVT)
Source: patient
Further Testing Considered But Not Given:
Consider CTA but already on Eliquis and negative DVT study just a few days ago.
Patient Management
Escalation/DeEscalation of care consider admission/obs:
Consider admission however troponin x 2 negative and EKG x 2 unremarkable. Okay for discharge and outpatient follow chest pain hotline. Patient already on Eliquis so do not suspect PE. In addition, no tachycardia or hypoxia or tachypnea.
Negative DVT scan the other day
ED Attending Note
-
Portions of this chart may have been created with voice recognition software.� Occasional wrong word or��sound alike� substitutions may have occurred due to the inherent limitations of voice recognition software.
Discharge Plan
Departure
Patient Disposition: Home (Routine Discharge)
Date of Disposition: 08/03/24
Time of Disposition: 20:51
Patient with high blood pressure during this ER visit?: No
Discharge Problem:
Chest pain
Instructions: Chest Pain DCA Follow Up
Prescriptions:
No Action
carvedilol 25 mg Tablet
25 mg PO BID
acetaminophen 325 mg Tablet
650 mg PO Q6H PRN (Reason: Fever/mild pain )
carvedilol 12.5 mg Tablet
18.75 mg PO BID
Rx Instructions:
Give 1 and 1/2 tablets with 25mg to total 43.75mg BID
cyanocobalamin (vitamin B-12) 100 mcg Tablet
100 mcg PO DAILY
cetirizine 10 mg Tablet
10 mg PO DAILY
amlodipine 5 mg Tablet
5 mg PO DAILY
famotidine 20 mg Tablet
20 mg PO BID
bisacodyl 10 mg Suppository
10 mg KS DAILY PRN (Reason: If MOM is ineffective )
Fleet Enema 19-7 gram/118 mL Enema
118 ml KS ONCE PRN (Reason: constipation)
Rx Instructions:
If suppository ineffective
folic acid 1 mg Tablet
1 mg PO DAILY
furosemide 20 mg Tablet
20 mg PO Q OTHER DAY
azathioprine 100 mg Tablet
200 mg PO DAILY
apixaban 5 mg Tablet
5 mg PO BID
cholecalciferol (vitamin D3)
2,000 units PO DAILY
docusate sodium
PO TID
lidocaine 4 % Adhesive Patch,Medicated
1 patch TOPICAL DAILY
Rx Instructions:
Apply to knees in the morning and off at night
sertraline 100 mg Tablet
200 mg PO DAILY
magnesium hydroxide [Milk of Magnesia] 400 mg/5 mL Suspension
30 ml PO DAILY PRN (Reason: constipation )
Rx Instructions:
If no BM in 3 days
trazodone 100 mg Tablet
100 mg PO HS
prednisone 1 mg Tablet
1 mg PO DAILY
calcium carbonate-vit A and D Tablet
2 tab PO BID
pregabalin 25 mg Capsule
25 mg PO TID
clonazepam 0.5 mg Tablet
0.5 mg PO DAILY Qty: 3 0RF
morphine 15 mg Tablet
15 mg PO Q6H PRN (Reason: chronic pain syndrome) Qty: 10 0RF
Referrals:
Keith Burnett, [Family Provider] -
Activity Restrictions/Additional Instructions:
Please avoid strenuous or exertional activity until cleared by cardiology. Please see cardiology in the next 48 hours for reevaluation. Return immediately for worsening pain, shortness breath, palpitations, sweating, nausea, weakness of any kind,
numbness, tingling or any other concerns.
Cardiology has been notified and a follow up appointment has been requested. Someone will call you on the next business day to schedule a follow up appointment.
Interventions
Interventions:
*Risk Screen - Suicide Last Done: 08/03/24 20:07
*General Assessment Last Done: 08/03/24 16:36
*Neglect/Abuse Screening Last Done: 08/03/24 20:07
*ED- Fall Risk Assessment Last Done: 08/03/24 19:57
*ED COVID-19 Vaccine History Last Done: 08/03/24 19:57
ED- Cardiac Assessment Last Done: 08/03/24 20:07
Discharge Date and Time
Print Language: GERMAN
[2024-08-03 20:41] LABS: Troponin I < 0.012 ng/ml
[2024-08-03] MEDS: TORADOL 15 MG IV (21:17)
[2024-08-03] MEDS: ATIVAN 1 MG PO (21:17)
--- NOTE | 2024-08-03 21:36 | EDRN ---
Report called to Kale at [facility].
== END 2024-08-03 23:16 | disposition home or self-care (01) ==
LOC: EMR 16:34
PROVIDERS: EMERGENCY PHYSICIAN Emergency Medicine; FAMILY PHYSICIAN Internal Medicine
DX: R07.89 Other chest pain (principal); I11.0 Hypertensive heart disease with heart failure; I50.9 Heart failure, unspecified; E11.9 Type 2 diabetes mellitus without complications; I25.10 Atherosclerotic heart disease of native coronary artery without angina pectoris; Z79.01 Long term (current) use of anticoagulants; Z86.718 Personal history of other venous thrombosis and embolism; Z86.73 Personal history of transient ischemic attack (TIA), and cerebral infarction without residual deficits; Z87.440 Personal history of urinary (tract) infections; Z91.51 Personal history of suicidal behavior
CPT/HCPCS: 99283; 96374; 71046; 80053; 84484; 85025; 93005